=== PATIENT | male | born 2000 | race African-American/Black ===

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

== ENCOUNTER 2022-05-09 02:38 | Emergency (ER) | payer SELFPAY ==
[2022-05-09] MEDS ORDERED: Lactated Ringer's 1,000 ML ONE (03:41)
[2022-05-09] MEDS ORDERED: Clindamycin/D5W 900 mg/50 ml Premix Bag ONE (03:41)
[2022-05-09] MEDS ORDERED: Dexamethasone 10 MG/ML VIAL ONE (03:41)
[2022-05-09 04:17] LABS: #Basophils 0.3 thou/uL (0.0-0.2); #Eosinphils 0.2 thou/uL (0.0-0.7); #Lymphocytes 1.5 thou/uL (1.20-3.40); #Neutrophils 7.5 thou/uL (1.40-6.50); %Basophils 2.7 % (0.0-1.0); %Eosinophils 1.5 % (0.0-10.0); %Lymphocytes 14.3 % (28.0-48.0); %Monocytes 9.2 % (0.0-4.0); %Neutrophils 72.3 % (31.0-61.0); Hemoglobin 14.9 g/dL (14.0-18.0); Hypochromia SLIGHT = 6-15 cells (100X) (0-5/hpf); MDiff Complete? YES; Mean Corpuscular Hemoglobin 23.3 pg (25.0-35.0); Mean Corpuscular Volume 77.5 fL (78.0-98.0); Mean Platelet Volume 10.5 fL (7.4-10.4); Microcytosis SLIGHT = 6-15 cells (100X) (0-5/hpf); Platelet Count 199 thou/uL (130-400); RBC Distribution Width 12.2 % (11.5-14.5); Red Blood Cell (RBC) Count 6.39 mill/uL (4.00-5.20); White Blood Cell (WBC) Count 10.3 thou/uL (4.8-10.8)
[2022-05-09 04:20] LABS: ALT (SGPT) 9 U/L (8-55); AST (SGOT) 14 U/L (5-34); Albumin 4.3 g/dL (3.5-5.0); Alkaline Phosphatase 64 U/L (50-130); Anion Gap 17 mmol/L (10-20); BUN (Urea Nitrogen) 12 mg/dL (8.9-20.6); Bilirubin, Total 0.4 mg/dL (0.2-1.2); Calc. Creatinine Clearance 0 mL/min (70-130); Calcium 9.5 mg/dL (7.8-10.44); Carbon Dioxide 25 mmol/L (22-29); Chloride 101 mmol/L (98-107); Estimated GFR 127; Globulin 3.8 g/dL (2.4-3.5); Glucose 108 mg/dL (70-105); Potassium 3.4 mmol/L (3.5-5.1); Protein, Total 8.1 g/dL (6.0-8.3); Sodium 140 mmol/L (136-145)
[2022-05-09] MEDS ORDERED: Potassium Chloride 20 MEQ TAB ONE (04:48)
[2022-05-09] MEDS ORDERED: HYDROcodone/Acetaminophen 5/325 mg Tablet ONE (05:06)
[2022-05-09] MEDS ORDERED: Iopamidol 370 76% 100 ML VIAL ONE (08:54)
== END 2022-05-09 06:03 | disposition home or self-care (01) ==
LOC: MADERS 02:38
DX: J36 Peritonsillar abscess (principal); E87.6 Hypokalemia
CPT/HCPCS: 70491; 80053; 85025; 87081; 87430; 96365; 96375; J1100; J3490; J7120; Q9967